=== PATIENT | female | born 2000 | race Caucasian/White ===

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

== ENCOUNTER 2020-12-16 01:32 | Emergency (ER) | payer OTHER ==
[2020-12-16 01:42] VITALS: BP 126/79; PULSE 95; TEMP 98.6; BMI 27.4
[2020-12-16] MEDS ORDERED: ACETAMINOPHEN 325 MG TABLET (FP) PO ONE (02:17)
[2020-12-16] MEDS ORDERED: ACETAMINOPHEN 325 MG TABLET (FP) ONE (02:30)
== END 2020-12-16 03:18 | disposition home or self-care (01) ==
LOC: JER 01:32
DX: G44.209 Tension-type headache, unspecified, not intractable (principal)
CPT/HCPCS: 84703; 99284-25; C9803; U0003; U0005